=== PATIENT | female | born 1985 | race Caucasian/White ===

== ENCOUNTER 2018-10-20 13:34 | Emergency (ER) | payer OTHER ==
[2018-10-20 13:47] VITALS: BP 133/90; PULSE 77; RESP 18; TEMP 98.6
--- NOTE | 2018-10-20 14:12 | ED ---
GI Bleed HPI - General Chief complaint: GI Bleed Stated complaint: Abd pain Time Seen by Provider: 10/20/18 13:47 Source: patient Mode of arrival: ambulatory Limitations: no limitations - History of Present Illness Initial comments: 33-year-old female presenting today for chief complaint of blood in stool x 1 day. Patient states that she had gone the total paper around 1 PM today. Patient states she had one other bloody stool ar 3AM she states there was a small amount within the stool. She states she has had on and off diarrhea for the past week. She denies fevers. Patient states she has had pork and [place] food she's not sure if this is the cause of diarrhea. Patient denies history of hemorrhoids. Patient denies any large amounts of blood, she denies racing heart, or shortness of breath. Patient denies noting any pallor. Patient denies abdominal pain, she states she when has diarrhea she has occasional cramping. Pt denies use of blood thinners. Remaining ROS (-). Upon arrival pt HR 77, BP elevated. Pt appears well, pink. No signs of acute distress. - Related Data Allergies Allergy/AdvReac Type Severity Reaction Status Date / Time No Known Allergies Allergy Verified 10/20/18 13:47 Review of Systems ROS Statement: Those systems with pertinent positive or pertinent negative responses have been documented in the HPI. ROS Other: All systems not noted in ROS Statement are negative. Past Medical History Past Medical History: No Reported History History of Any Multi-Drug Resistant Organisms: None Reported Past Surgical History: No Surgical Hx Reported Past Psychological History: No Psychological Hx Reported Smoking Status: Never smoker Past Alcohol Use History: None Reported Past Drug Use History: None Reported General Exam - General Exam Comments Initial Comments: General: The patient is awake and alert, in no distress, and does not appear acutely ill. Eye: Pupils are equal, round and reactive to light, extra-ocular movements are intact. No nystagmus. There is normal conjunctiva bilaterally. No signs of icterus. Ears, nose, mouth and throat: There are moist mucous membranes and no oral lesions. No pallor of the eye lids, mucosa. Neck: The neck is supple, there is no tenderness or JVD. Cardiovascular: There is a regular rate and rhythm. No murmur, rub or gallop is appreciated. Respiratory: Lungs are clear to auscultation, respirations are non-labored, breath sounds are equal. No wheezes, stridor, rales, or rhonchi. Gastrointestinal: Soft, non-distended, non-tender abdomen without masses or organomegaly noted. There is no rebound or guarding present. No CVA tenderness. Bowel sounds are unremarkable. Patient rectal exam reveals slight tenderness at the 6 oclock position, no large hemorrhoids noted. No masses palpable. No bright red blood on finger or in stool obtained. Musculoskeletal: Normal ROM, no tenderness. Strength 5/5. Sensation intact. Radial pulses equal bilaterally 2+. Neurological: A&O x 3. CN II-XII intact, There are no obvious motor or sensory deficits. Coordination appears grossly intact. Speech is normal. Skin: Skin is warm and dry and no rashes or lesions are noted. Psychiatric: Cooperative, appropriate mood & affect, normal judgment. Limitations: no limitations Course Vital Signs 10/20/18 13:44 Temperature 98.6 F Pulse Rate 77 Respiratory 18 Rate Blood Pressure 133/90 O2 Sat by Pulse 99 Oximetry Medical Decision Making - Medical Decision Making Very well-appearing 33-year-old female presenting for blood in stool and on Toprol. Patient states there was a small amount however she has never experienced this before. Patient states she has had diarrhea on and off for the past 5 days. Patient's heart rate within normal limits. No evidence of pallor. Patient's blood pressure within acceptable limits. There is no gross red blood on rectal examination. Slight tenderness at 6 oclock position, ddx includes hemorrhoid, vs infectious diarrhea. The abdomen was nontender. Patient denies any large amounts of blood or uncontrolled diarrhea with blood in stools. At this time I feel patient is stable for discharge with strict return parameters the patient's bleeding increases, or frequency of bloody stool i recommended immediate return, as well as return for weakness pallor dizziness or lightheaded sensations. Patient verbalized understanding. Patient was agreeable with discharge without laboratory studies. I did recommend outpatient GI f/u. Patient case discussed with Dr. Becker. Disposition Clinical Impression: Blood in stool, History of diarrhea Disposition: HOME SELF-CARE Condition: Good Instructions (If sedation given, give patient instructions): Gastrointestinal Bleeding (ED) Additional Instructions: Please use medication as discussed. Please follow-up with family doctor in the next 2 days, Dr. Madrid within next 1-2 weeks. Please return to emergency room if the symptoms increase or worsen or for any other concerns, IMMEDIATE RETURN FOR PERSISTENT OR HEAVY RECTAL BLEEDING, DIZZINESS, OR SHORT OF BREATH. Is patient prescribed a controlled substance at d/c from ED?: No Referrals: Lencho Corona MD [Primary Care Provider] - 1-2 days Tima Madrid MD [STAFF PHYSICIAN] - 1-2 days Time of Disposition: 14:12
== END 2018-10-20 14:27 | disposition home or self-care (01) ==
LOC: EC 13:34
DX: K92.1 Melena (principal); R19.7 Diarrhea, unspecified
CPT/HCPCS: 99284